=== PATIENT | male | born 1965 | race Caucasian/White ===

== ENCOUNTER 2024-08-05 13:24 | Emergency (ER) | payer MEDICAID ==
[~2024-08-05] VITALS: Ht 165.1 cm; Wt 73.0 kg
[2024-08-05 13:27] VITALS: BP 112/83; PULSE 98; RESP 18; TEMP 97.7; O2SAT 100
[2024-08-05] MEDS ORDERED: ALPRAZOLAM 0.25 MG TABLET PO ONE (13:45)
[2024-08-05] MEDS: ALPRAZOLAM 0.25 MG TABLET PO NR (14:12)
== END 2024-08-05 17:00 | disposition left against medical advice (07) ==
LOC: ER 13:24
DX: F15.10 Other stimulant abuse, uncomplicated (principal)
CPT/HCPCS: 99283